=== PATIENT | male | born 1945 | race Caucasian/White ===

== ENCOUNTER 2019-08-05 09:14 | Inpatient (IN) | payer MEDICARE, MEDICAID ==
[~2019-08-05] VITALS: Ht 182.9 cm; Wt 122.0 kg
--- NOTE | 2019-08-05 09:35 | NUR ---
patient ambulated into room with cane refused wc: pt unsteady on feet with daughter in aw at his side
--- NOTE | 2019-08-05 09:36 | NUR ---
JULIA SAN [phone]
[2019-08-05] MEDS ORDERED: levetiracetam inj 500 MG in normal saline 100ml IV soln 95 ML IV ONE (09:50)
[2019-08-05] MEDS ORDERED: LORazepam 2 mg/ml vial IV ONE (09:50)
[2019-08-05] MEDS ORDERED: Levetiracetam-NS 500mg/100ml 100 ML IV ONE (09:55)
[2019-08-05 10:01] LABS: CLARITY,URINE CLEAR (Clear); COLOR,URINE YELLOW (Yellow); GLUCOSE, URINE NEGATIVE (Neg); KETONES,URINE NEGATIVE (Neg); LEUKOCYTE ESTERASE ,URINE NEGATIVE (Neg); NITRITES, URINE NEGATIVE (Neg); OCCULT BLOOD,URINE NEGATIVE (Neg); PH,URINE 5.5 (4.8-8.0); PROTEIN,URINE NEGATIVE (Neg); URINE AMPHETAMINE SCREEN NEGATIVE (Neg); URINE BARBITUATE SCREEN NEGATIVE (Neg); URINE BENZODIAZEPINES SCREEN NEGATIVE (Neg); URINE CANNABINOID SCREEN NEGATIVE (Neg); URINE COCAINE SCREEN NEGATIVE (Neg); URINE METHADONE SCREEN NEGATIVE (Neg); URINE OPIATE SCREEN NEGATIVE (Neg); URINE PHENCYCLIDINE SCREEN NEGATIVE (Neg); UROBILINOGEN,URINE 0.2 E.U/dL (0.2-1.0)
[2019-08-05 10:05] LABS: UA COLLECTION TYPE CLN CATCH MIDSTREAM
[2019-08-05 10:10] LABS: BASOPHILS # (AUTO) 0.1 X10'3 (0-0.2); BASOPHILS % (AUTO) 0.8 % (0-1); EOSINOPHILS # (AUTO) 0.3 X10'3 (0-0.9); HEMATOCRIT 45.8 % (42.0-52.0); HEMOGLOBIN 15.7 g/dl (14.0-17.9); LYMPHOCYTES % (AUTO) 23.2 % (21-51); MEAN CORPUSCULAR HEMOGLOBIN 30.6 PG (27.0-31.0); MEAN CORPUSCULAR HGB CONC 34.2 g/dL (33.0-36.5); MEAN CORPUSCULAR VOLUME 89.5 FL (78-98); MEAN PLATELET VOLUME 8.5 FL (7.4-10.4); MONOCYTES # (AUTO) 0.8 X10'3 (0-0.9); MONOCYTES % (AUTO) 8.8 % (2-12); NEUTROPHILS # (AUTO) 5.6 X10'3 (1.8-7.7); NEUTROPHILS % (AUTO) 64.2 % (42-75); PLATELET COUNT 246 X10'3 (140-440); RED BLOOD COUNT 5.12 X10'6 (4.70-6.10); RED CELL DISTRIBUTION WIDTH 13.6 % (11.5-14.5); WHITE BLOOD COUNT 8.7 X10'3 (4.5-11.0)
[2019-08-05 10:25] LABS: ALANINE AMINOTRANSFERASE 32 U/L (12-78); ALBUMIN 3.9 G/DL (3.4-5.0); ALKALINE PHOSPHATASE 101 IU/L (46-116); ANION GAP 4 (8-16); ASPARTATE AMINO TRANSFERASE 17 U/L (10-37); BILIRUBIN,TOTAL 0.4 MG/DL (0.1-1.0); BLOOD UREA NITROGEN 20 MG/DL (7-18); BUN/CREATININE RATIO 20.2 (5.4-32.0); CALCIUM 8.9 MG/DL (8.5-10.1); CARBAMAZEPINE (TEGRETOL) 8.5 UG/ML (4.0-12.0); CHLORIDE 101 MMOL/L (99-107); CREATININE 0.99 MG/DL (0.60-1.10); GLUCOSE 99 MG/DL (70-104); POTASSIUM 4.3 MMOL/L (3.5-5.1); SODIUM 136 MMOL/L (135-145); TOTAL PROTEIN 7.9 G/DL (6.4-8.2); eGFR 74 ML/MIN
--- NOTE | 2019-08-05 10:26 | NUR ---
CALLED PHARMACY TO OBTAIN KEPPRA AT 1000: ATTEMPTED TO OBTAIN FROM [employer] NOT IN [facility]
[2019-08-05 10:38] LABS: MAGNESIUM 1.7 MG/DL (1.5-2.4); PHOSPHORUS 2.8 MG/DL (2.3-4.5)
[2019-08-05 10:43] LABS: ETHANOL < 0.010 GM/DL (0.0-0.010)
[2019-08-05] MEDS ORDERED: IBUP-1985 PO (11:20)
[2019-08-05] MEDS ORDERED: KEP500T PO (11:20)
[2019-08-05] MEDS ORDERED: LISI-600 PO (11:20)
[2019-08-05] MEDS ORDERED: HYDR-4353 PO (11:20)
[2019-08-05] MEDS ORDERED: MONT10TA24 PO (11:20)
[2019-08-05] MEDS ORDERED: TERA1CAP4 PO (11:20)
[2019-08-05] MEDS ORDERED: ALBU18HF2 INH (11:20)
[2019-08-05] MEDS ORDERED: ASPI-1265 PO (11:20)
[2019-08-05] MEDS ORDERED: ARMO200T4 PO (11:20)
[2019-08-05] MEDS ORDERED: ESCI20TA38 PO (11:20)
[2019-08-05] MEDS ORDERED: CARB200T PO ×2 (11:22)
[2019-08-05] MEDS ORDERED: ATOR40TA PO (11:22)
--- NOTE | 2019-08-05 11:25 | NUR ---
DR JOHNSON COMPLETED EVALUATION FOR PT AND REPORTED TO NURSES STATION SHE WILL BEING PUTTING ORDERS IN SHORTLY, DR JOHNSON INFORMED RN JUST COMPLETED PT MED REC
[2019-08-05] MEDS ORDERED: mag hydrox/Alum hydrox/simeth 30ml oral suspension PO PRN (11:40)
[2019-08-05] MEDS ORDERED: potassium CL 10mEq/100ml bag 100 ML IV PRN ×2 (11:40)
[2019-08-05] MEDS ORDERED: potassium Cl 20 mEq SR tablet PO PRN ×2 (11:40)
[2019-08-05] MEDS ORDERED: acetaminophen 325mg tablet PO PRN ×2 (11:40)
[2019-08-05] MEDS ORDERED: morphine 2 MG/ML inj. syringe IV PRN ×2 (11:40)
[2019-08-05] MEDS ORDERED: magnesium Cl slow-release 64mg tablet PO PRN (11:40)
[2019-08-05] MEDS ORDERED: HYDROcodone/acetaminophen 5mg/325mg tablet PO PRN (11:40)
[2019-08-05] MEDS ORDERED: ondansetron/PF 4mg/2ml inj IV PRN (11:40)
[2019-08-05] MEDS ORDERED: magnesium 2GM in 50ml NS 50 ML IV PRN (11:40)
[2019-08-05] MEDS ORDERED: magnesium 4gm in 100ml NS 100 ML IV PRN (11:40)
[2019-08-05] MEDS ORDERED: albuterol 2.5 MG/3 ML nebule NEB PRN (12:15)
--- NOTE | 2019-08-05 12:25 | NUR ---
Received report from Jackelyn in ED
[2019-08-05] MEDS ORDERED: ibuprofen 200mg tablet PO PRN (12:30)
[2019-08-05 12:37] VITALS: BP 129/66
--- NOTE | 2019-08-05 13:03 | NUR ---
PAGER ID: [phone] MESSAGE: Re: [id number]. Ti Blanco. Do you want EEG now? He received Lucía and Gordon in ER. BOKEELIA [id number]
--- NOTE | 2019-08-05 15:23 | NUR ---
PAGER ID: [phone] MESSAGE: RE: [id number] Ti Blanco. Patient wanting to leave AMA. Upset EEG was done today and not 12 hours after seizure meds. Explained our protocol and need for medications. GRAEME [id number]
--- NOTE | 2019-08-05 16:29 | NUR ---
Spoke to Jenelle at [facility] [phone] who is nurse for Dr. Vora Neurologist. Per Jenelle, Dr. Vora agrees with current treatment patient with seizure medications. Dr. Pitts requested to speak to Dr. Vora directly but he has not called to speak to Dr. Pitts, instead had Jenelle call to give message. Will update Dr. Pitts
--- NOTE | 2019-08-05 17:03 | NUR ---
PAGER ID: [phone] MESSAGE: RE: [id number] Ti Blanco. Spoke to Jenelle at [facility], according to her Dr. Yousif agrees to continue seizure meds. He was unable to call you when I spoke to her. GRAEME [id number]
[2019-08-05 18:00] VITALS: BP 100/56
--- NOTE | 2019-08-05 18:09 | NUR ---
Problems reprioritized. Patient report given, questions answered & plan of care reviewed with Dodie CHAPMAN.
--- NOTE | 2019-08-05 18:10 | NUR ---
Received report from brandon CHAPMAN pt is awake and alert eating dinner in no apaprent distress
[2019-08-05 20:15] VITALS: BP_SYST 119; BP_SYST 144; BP_SYST 148; BP_DIAS 69; BP_DIAS 79; BP_DIAS 81
[2019-08-05] MEDS: docusate sod 100mg capsule PO SCH (20:20)
[2019-08-05] MEDS: levetiracetam 250mg tablet PO SCH (20:20)
[2019-08-05] MEDS: heparin, porcine 5000 units/ml vial SQ SCH (20:22)
--- NOTE | 2019-08-05 20:55 | NUR ---
pt was sitting on side of bed, would not respond to my question of what he was doing, got him to lay down, notice hand was kit, pt kept saying ow and not responding to question, called for another nurse to come look, pt then responded to name and started to respond to questions
[2019-08-05] MEDS ORDERED: montelukast 10mg tablet PO SCH (21:00)
[2019-08-05] MEDS ORDERED: carBAMazepine 100mg chewable tablet PO SCH (21:00)
[2019-08-05] MEDS ORDERED: Terazosin 1mg capsule PO SCH (21:00)
[2019-08-05] MEDS ORDERED: temazepam 15mg capsule PO PRN (21:00)
--- NOTE | 2019-08-05 21:43 | NUR ---
the non-responsive and contracture period seemed to last for about 1 minute.
[2019-08-05 22:00] VITALS: BP 119/69
[2019-08-06] MEDS: HYDROcodone/acetaminophen 10/325mg tab PO PRN ×2 (00:04→10:38)
[2019-08-06 06:00] VITALS: BP 141/65
[2019-08-06 06:11] LABS: BASOPHILS % (AUTO) 0.6 % (0-1); EOSINOPHILS # (AUTO) 0.3 X10'3 (0-0.9); HEMATOCRIT 39.5 % (42.0-52.0); HEMOGLOBIN 13.6 g/dl (14.0-17.9); LYMPHOCYTES # (AUTO) 1.6 X10'3 (1.1-4.8); LYMPHOCYTES % (AUTO) 27.1 % (21-51); MEAN CORPUSCULAR HEMOGLOBIN 30.7 PG (27.0-31.0); MEAN CORPUSCULAR HGB CONC 34.5 g/dL (33.0-36.5); MEAN CORPUSCULAR VOLUME 88.9 FL (78-98); MEAN PLATELET VOLUME 8.7 FL (7.4-10.4); MONOCYTES # (AUTO) 0.6 X10'3 (0-0.9); MONOCYTES % (AUTO) 10.7 % (2-12); NEUTROPHILS # (AUTO) 3.4 X10'3 (1.8-7.7); NEUTROPHILS % (AUTO) 56.6 % (42-75); PLATELET COUNT 208 X10'3 (140-440); RED BLOOD COUNT 4.44 X10'6 (4.70-6.10); RED CELL DISTRIBUTION WIDTH 13.6 % (11.5-14.5)
--- NOTE | 2019-08-06 06:18 | NUR ---
Gave report to Sejal CHAPMAN PT is in room talking with pt
--- NOTE | 2019-08-06 06:20 | NUR ---
Patient in room ORTHO 4022. I have received report from Lupe and had the opportunity to ask questions and assume patient care.
[2019-08-06 06:28] LABS: ALANINE AMINOTRANSFERASE 25 U/L (12-78); ALBUMIN 3.3 G/DL (3.4-5.0); ALKALINE PHOSPHATASE 85 IU/L (46-116); ANION GAP 5 (8-16); ASPARTATE AMINO TRANSFERASE 15 U/L (10-37); BILIRUBIN,TOTAL 0.3 MG/DL (0.1-1.0); BLOOD UREA NITROGEN 20 MG/DL (7-18); BUN/CREATININE RATIO 25.6 (5.4-32.0); CALCIUM 8.5 MG/DL (8.5-10.1); CHLORIDE 101 MMOL/L (99-107); CREATININE 0.78 MG/DL (0.60-1.10); GLUCOSE 110 MG/DL (70-104); MAGNESIUM 1.7 MG/DL (1.5-2.4); POTASSIUM 4.3 MMOL/L (3.5-5.1); SODIUM 133 MMOL/L (135-145); TOTAL CARBON DIOXIDE 27.2 MMOL/L (24-32); TOTAL PROTEIN 6.7 G/DL (6.4-8.2); eGFR > 90 ML/MIN
[2019-08-06] MEDS: levetiracetam 250mg tablet PO SCH (07:44)
[2019-08-06] MEDS: docusate sod 100mg capsule PO SCH (07:44)
[2019-08-06] MEDS: heparin, porcine 5000 units/ml vial SQ SCH (07:45)
[2019-08-06] MEDS ORDERED: atorvastatin 20mg tablet PO SCH (08:00)
[2019-08-06] MEDS ORDERED: ESCITALOPRAM OXALATE 5 MG TABLET PO SCH (08:00)
[2019-08-06] MEDS ORDERED: aspirin 81mg tab.chew PO SCH (08:00)
[2019-08-06] MEDS ORDERED: K and/or MAG REPLACEMENT MC SCH (08:00)
[2019-08-06] MEDS ORDERED: ARMODAFINIL 200 MG PO SCH (08:00)
[2019-08-06] MEDS ORDERED: lisinopril 20mg tablet PO SCH (08:00)
[2019-08-06] MEDS ORDERED: non-formulary drug (Carbamazepine (Tegretol) 1 TAB) PO SCH (08:00)
[2019-08-06 08:13] VITALS: BP_SYST 130; BP_SYST 134; BP_DIAS 63; BP_DIAS 65; BP_DIAS 68
--- NOTE | 2019-08-06 08:43 | NUR ---
Paged EEG to request report per request from , report has not been read yet.
[2019-08-06 10:00] VITALS: BP 111/50
--- NOTE | 2019-08-06 10:47 | NUR ---
Called daughter Giovana to advise MD would like to meet with her to discuss plan of care. Giovana advised she was waiting to here from neurologist but could be here in approx. 45 min.
--- NOTE | 2019-08-06 12:48 | NUR ---
PAGER ID: [phone] MESSAGE: Willie Pitts, Mr. Blanco's daughter in law, in room 4022A is here. Thank you, Sejal
--- NOTE | 2019-08-06 13:26 | NUR ---
Reviewed discharge instructions with pt. Pt verbalized understanding. All of pt's belongings were returned to pt. Pt is alert, oriented and does not have c/o discomfort/distress at this time. Wheeled pt downstairs to be driven home by his daughter in law.
== END 2019-08-06 13:40 | disposition home or self-care (01) | DRG 101 ==
LOC: ER 09:15 → ED HOLD 11:39 → ORTHO 4S 12:43
PROVIDERS: ADMIT Internal Medicine; ATTEND Internal Medicine
PROC: 4A10X4Z Monitoring of Central Nervous Electrical Activity, External Approach (ICD-10-PCS; principal; 2019-08-06)
DX: G40.909 Epilepsy, unspecified, not intractable, without status epilepticus (principal); I69.354 Hemiplegia and hemiparesis following cerebral infarction affecting left non-dominant side; I10 Essential (primary) hypertension; E78.5 Hyperlipidemia, unspecified; F15.90 Other stimulant use, unspecified, uncomplicated; M54.5 Low back pain; F32.9 Major depressive disorder, single episode, unspecified; G89.29 Other chronic pain; Z79.891 Long term (current) use of opiate analgesic; Z79.899 Other long term (current) drug therapy; Z87.891 Personal history of nicotine dependence; Z79.82 Long term (current) use of aspirin; Z88.8 Allergy status to other drugs, medicaments and biological substances
CPT/HCPCS: 36415; 80053; 80156; 80305; 80320; 81003; 83605; 83735; 84100; 85025; 87040; 87081; 92508; 92616; 95816; 96365; 96375; 97116; 97161; 97530; 99285; G0378; J1644; J1953; J2060

== ENCOUNTER 2019-08-24 08:53 | Outpatient (CLI) | payer MEDICARE, MEDICAID ==
[~2019-08-24 08:53] MED LIST: ALBU18HF2 INH; ARMO200T4 PO; ASPI-1265 PO; ATOR40TA PO; CARB200T PO; ESCI20TA38 PO; HYDR-4353 PO; IBUP-1985 PO; KEP500T PO; LISI-600 PO; MONT10TA24 PO; TERA1CAP4 PO
== END 2019-08-24 23:59 | disposition home or self-care (01) ==
LOC: RAD 08:53
PROVIDERS: ATTEND Psychiatry & Neurology Neurology
DX: G40.909 Epilepsy, unspecified, not intractable, without status epilepticus (principal); I10 Essential (primary) hypertension; J45.909 Unspecified asthma, uncomplicated; Z87.891 Personal history of nicotine dependence; Z86.69 Personal history of other diseases of the nervous system and sense organs
CPT/HCPCS: 95816

== ENCOUNTER 2020-08-18 09:04 | Emergency (ER) | payer MEDICARE, MEDICAID ==
[~2020-08-18] VITALS: Ht 182.9 cm; Wt 127.3 kg
[~2020-08-18 09:04] MED LIST changes: -ESCI20TA38 PO; +ESCI20TA45 PO; -MONT10TA24 PO; +MONT10TA26 PO
[2020-08-18] MEDS ORDERED: LORazepam 2 mg/ml vial IV ONE (09:15)
[2020-08-18] MEDS ORDERED: normal saline 1000ML IV soln IVB ONE (09:15)
[2020-08-18] MEDS ORDERED: LORazepam 2 mg/ml vial IM ONE (09:35)
[2020-08-18 09:56] LABS: CLARITY,URINE CLEAR (Clear); COLOR,URINE YELLOW (Yellow); GLUCOSE, URINE NEGATIVE (Neg); KETONES,URINE NEGATIVE (Neg); LEUKOCYTE ESTERASE ,URINE NEGATIVE (Neg); NITRITES, URINE NEGATIVE (Neg); OCCULT BLOOD,URINE NEGATIVE (Neg); PROTEIN,URINE NEGATIVE (Neg); UA COLLECTION TYPE VOIDED; UROBILINOGEN,URINE 0.2 E.U/dL (0.2-1.0)
[2020-08-18 10:17] LABS: BASOPHILS % (AUTO) 0.5 % (0-1); EOSINOPHILS # (AUTO) 0.2 X10'3 (0-0.9); EOSINOPHILS % (AUTO) 2.3 % (0-6); HEMOGLOBIN 14.2 g/dl (14.0-17.9); LYMPHOCYTES # (AUTO) 1.3 X10'3 (1.1-4.8); LYMPHOCYTES % (AUTO) 15.4 % (21-51); MEAN CORPUSCULAR HEMOGLOBIN 30.1 PG (27.0-31.0); MEAN CORPUSCULAR HGB CONC 33.8 g/dL (33.0-36.5); MEAN CORPUSCULAR VOLUME 88.9 FL (78-98); MEAN PLATELET VOLUME 8.8 FL (7.4-10.4); MONOCYTES # (AUTO) 0.7 X10'3 (0-0.9); MONOCYTES % (AUTO) 8.3 % (2-12); NEUTROPHILS # (AUTO) 6.3 X10'3 (1.8-7.7); NEUTROPHILS % (AUTO) 73.5 % (42-75); PLATELET COUNT 242 X10'3 (140-440); RED BLOOD COUNT 4.72 X10'6 (4.70-6.10); RED CELL DISTRIBUTION WIDTH 13.5 % (11.5-14.5); WHITE BLOOD COUNT 8.6 X10'3 (4.5-11.0)
[2020-08-18 10:37] LABS: ALANINE AMINOTRANSFERASE 36 U/L (12-78); ALBUMIN 3.8 G/DL (3.4-5.0); ALBUMIN/GLOBULIN RATIO 1.1 (1.1-1.5); ALKALINE PHOSPHATASE 98 IU/L (46-116); ANION GAP 9 (8-16); ASPARTATE AMINO TRANSFERASE 20 U/L (10-37); BILIRUBIN,TOTAL 0.4 MG/DL (0.1-1.0); BLOOD UREA NITROGEN 12 MG/DL (7-18); BUN/CREATININE RATIO 14.6 (5.4-32.0); CALCIUM 9.1 MG/DL (8.5-10.1); CHLORIDE 104 MMOL/L (99-107); CREATININE 0.82 MG/DL (0.60-1.10); GLUCOSE 95 MG/DL (70-104); POTASSIUM 4.1 MMOL/L (3.5-5.1); SODIUM 140 MMOL/L (135-145); TOTAL CARBON DIOXIDE 27.1 MMOL/L (24-32); TOTAL PROTEIN 7.2 G/DL (6.4-8.2); eGFR > 90 ML/MIN
[2020-08-18] MEDS ORDERED: LEVE750T6 PO (10:43)
[2020-08-18 11:38] VITALS: BP 178/95
== END 2020-08-18 11:42 | disposition home or self-care (01) ==
LOC: ER 09:04
DX: G40.109 Localization-related (focal) (partial) symptomatic epilepsy and epileptic syndromes with simple partial seizures, not intractable, without status epilepticus (principal); R51.9 Headache, unspecified; Z86.73 Personal history of transient ischemic attack (TIA), and cerebral infarction without residual deficits; Z86.69 Personal history of other diseases of the nervous system and sense organs; Z88.1 Allergy status to other antibiotic agents; Z79.82 Long term (current) use of aspirin; Z79.899 Other long term (current) drug therapy
CPT/HCPCS: 36415; 70450; 80053; 80177; 81003; 85025; 96361; 96372; 96374; 99285; J2060; J7030; 99284

== ENCOUNTER 2022-12-12 10:53 | Emergency (ER) | payer MEDICARE, MEDICAID ==
[~2022-12-12] VITALS: Ht 182.9 cm; Wt 127.3 kg
[~2022-12-12 10:53] MED LIST changes: -ALBU18HF2 INH; +ALBU18HF2 PO; -ARMO200T4 PO; +ESCI20TA39 PO; -ESCI20TA45 PO; +LACO50TA2 PO; -LISI-600 PO; +LISI20TA28 PO; +MONT-40 PO; -MONT10TA26 PO; +PREG75CA75 PO
[2022-12-12 11:40] LABS: BASOPHILS # (AUTO) 0.1 X10'3 (0-0.2); BASOPHILS % (AUTO) 0.6 % (0-1); EOSINOPHILS # (AUTO) 0.3 X10'3 (0-0.9); HEMATOCRIT 47.7 % (42.0-52.0); HEMOGLOBIN 15.8 g/dl (14.0-17.9); LYMPHOCYTES # (AUTO) 1.9 X10'3 (1.1-4.8); LYMPHOCYTES % (AUTO) 17.7 % (21-51); MEAN CORPUSCULAR HEMOGLOBIN 29.8 PG (27.0-31.0); MEAN CORPUSCULAR HGB CONC 33.2 g/dL (33.0-36.5); MEAN PLATELET VOLUME 8.7 FL (7.4-10.4); MONOCYTES # (AUTO) 0.9 X10'3 (0-0.9); MONOCYTES % (AUTO) 8.5 % (2-12); NEUTROPHILS # (AUTO) 7.5 X10'3 (1.8-7.7); NEUTROPHILS % (AUTO) 70.2 % (42-75); PLATELET COUNT 271 X10'3 (140-440); RED CELL DISTRIBUTION WIDTH 14.2 % (11.5-14.5); WHITE BLOOD COUNT 10.7 X10'3 (4.5-11.0)
[2022-12-12 11:56] LABS: ALANINE AMINOTRANSFERASE 27 U/L (12-78); ALBUMIN 3.5 G/DL (3.4-5.0); ALKALINE PHOSPHATASE 90 IU/L (46-116); ANION GAP 7 (8-16); BILIRUBIN,TOTAL 0.4 MG/DL (0.1-1.0); BLOOD UREA NITROGEN 13 MG/DL (7-18); BUN/CREATININE RATIO 17.3 (5.4-32.0); CALCIUM 9.1 MG/DL (8.5-10.1); CHLORIDE 104 MMOL/L (99-107); CREATININE 0.75 MG/DL (0.60-1.10); GLUCOSE 108 MG/DL (70-104); SODIUM 137 MMOL/L (135-145); TOTAL CARBON DIOXIDE 25.7 MMOL/L (24-32); TOTAL PROTEIN 7.1 G/DL (6.4-8.2); eGFR > 90 ML/MIN
[2022-12-12] MEDS ORDERED: magnesium 2GM in 50ml NS 50 ML IV ONE (12:00)
[2022-12-12] MEDS ORDERED: normal saline 1000ML IV soln IVB ONE (12:00)
[2022-12-12] MEDS ORDERED: LORazepam 2 mg/ml vial IV ONE (12:00)
[2022-12-12 12:05] LABS: ASPARTATE AMINO TRANSFERASE 26 U/L (10-37); POTASSIUM 4.5 MMOL/L (3.5-5.1)
[2022-12-12] MEDS ORDERED: levetiracetam inj 1,000 MG in normal saline 100ml IV soln 100 ML IV STA (12:56)
[2022-12-12 13:07] LABS: CREATINE KINASE 167 U/L (39-308)
--- NOTE | 2022-12-12 13:11 | NUR ---
pt sleeping at this time .vss wnl.started the keppra infusing per md orders.
[2022-12-12 15:24] VITALS: BP 126/69
--- NOTE | 2022-12-12 15:46 | NUR ---
PT PASSED GAIT TEST. NO SOB/NO COMPLAINTS OF CP.
== END 2022-12-12 15:49 | disposition home or self-care (01) ==
LOC: ER 10:53
DX: R56.9 Unspecified convulsions (principal); B02.9 Zoster without complications; I50.9 Heart failure, unspecified; Z88.1 Allergy status to other antibiotic agents; Z79.899 Other long term (current) drug therapy; Z79.82 Long term (current) use of aspirin; Z79.1 Long term (current) use of non-steroidal anti-inflammatories (NSAID); Z79.2 Long term (current) use of antibiotics
CPT/HCPCS: 36415; 71045; 80053; 82550; 83880; 84484; 85025; 96365; 96366; 96368; 96375; 99285; J1953; J2060; J3475; J3490; J7030

== ENCOUNTER 2023-08-16 16:25 | Inpatient (IN) | payer MEDICARE, MEDICAID ==
[~2023-08-16] VITALS: Ht 185.4 cm; Wt 123.2 kg
[~2023-08-16 16:25] MED LIST changes: -PREG75CA75 PO; +PREG75CA76 PO
[2023-08-16] MEDS ORDERED: LORazepam 2 mg/ml vial IV ONE (17:05)
[2023-08-16] MEDS ORDERED: levetiracetam inj 500 MG in normal saline 100ml IV soln 95 ML IV ONE (17:45)
[2023-08-16] MEDS ORDERED: levetiracetam inj 500 MG in normal saline 100ml IV soln 100 ML IV ONE (17:45)
[2023-08-16 17:58] LABS: BASOPHILS # (AUTO) 0.1 X10'3 (0-0.2); BASOPHILS % (AUTO) 0.7 % (0-1); EOSINOPHILS # (AUTO) 0.4 X10'3 (0-0.9); EOSINOPHILS % (AUTO) 4.9 % (0-6); HEMATOCRIT 49.4 % (42.0-52.0); HEMOGLOBIN 16.5 g/dl (14.0-17.9); LYMPHOCYTES # (AUTO) 1.8 X10'3 (1.1-4.8); LYMPHOCYTES % (AUTO) 19.6 % (21-51); MEAN CORPUSCULAR HEMOGLOBIN 30.3 PG (27.0-31.0); MEAN CORPUSCULAR HGB CONC 33.3 g/dL (33.0-36.5); MEAN CORPUSCULAR VOLUME 91.1 FL (78-98); MONOCYTES # (AUTO) 0.8 X10'3 (0-0.9); MONOCYTES % (AUTO) 8.5 % (2-12); NEUTROPHILS % (AUTO) 66.3 % (42-75); PLATELET COUNT 214 X10'3 (140-440); RED BLOOD COUNT 5.43 X10'6 (4.70-6.10); RED CELL DISTRIBUTION WIDTH 14.6 % (11.5-14.5); WHITE BLOOD COUNT 9.1 X10'3 (4.5-11.0)
[2023-08-16] MEDS ORDERED: ondansetron/PF 4mg/2ml inj IV PRN (18:25)
[2023-08-16] MEDS ORDERED: potassium Cl 20 mEq SR tablet PO PRN ×2 (18:25)
[2023-08-16] MEDS ORDERED: bisacodyl 10mg suppository rectal RC PRN (18:25)
[2023-08-16] MEDS ORDERED: magnesium 2GM in 50ml NS 50 ML IV PRN (18:25)
[2023-08-16] MEDS ORDERED: potassium Cl 40MEQ/1/2NS 520ml 520 ML IV PRN (18:25)
[2023-08-16] MEDS ORDERED: acetaminophen 325mg tablet PO PRN (18:25)
[2023-08-16] MEDS ORDERED: mag hydrox/Alum hydrox/simeth 30ml oral suspension PO PRN (18:25)
[2023-08-16] MEDS ORDERED: magnesium 4gm in 100ml NS 100 ML IV PRN (18:25)
[2023-08-16 18:41] LABS: ALANINE AMINOTRANSFERASE 32 U/L (12-78); ALBUMIN 3.4 G/DL (3.4-5.0); ALKALINE PHOSPHATASE 86 IU/L (46-116); ANION GAP 6 (8-16); ASPARTATE AMINO TRANSFERASE 26 U/L (10-37); BILIRUBIN,TOTAL 0.2 MG/DL (0.1-1.0); BLOOD UREA NITROGEN 16 MG/DL (7-18); BUN/CREATININE RATIO 17.4 (10.0-20.0); CALCIUM 8.9 MG/DL (8.5-10.1); CARBAMAZEPINE (TEGRETOL) 3.5 UG/ML (4.0-12.0); CHLORIDE 104 MMOL/L (99-107); CREATININE 0.92 MG/DL (0.60-1.10); GLUCOSE 116 MG/DL (70-104); POTASSIUM 4.3 MMOL/L (3.5-5.1); SODIUM 139 MMOL/L (135-145); TOTAL PROTEIN 6.8 G/DL (6.4-8.2); eCRCL 71 ML/MIN; eGFR 79 ML/MIN
[2023-08-16] MEDS: K and/or MAG REPLACEMENT MC SCH (20:00)
[2023-08-16] MEDS ORDERED: LACOSAMIDE 50 MG TABLET PO SCH (20:00)
[2023-08-16] MEDS: docusate sod 100mg capsule PO SCH (21:26)
[2023-08-16] MEDS: HYDROcodone/acetaminophen 10/325mg tab PO PRN (21:27)
[2023-08-16] MEDS: levetiracetam 250mg tablet PO SCH (21:27)
[2023-08-16] MEDS: LORazepam 2 mg/ml vial IV ONE ×2 (21:27→21:48)
[2023-08-16] MEDS: enoxaparin 40mg/0.4ml syringe SQ SCH (21:28)
[2023-08-16] MEDS: carBAMazepine Ext. Release 200 MG TAB.ER.12H PO SCH (21:50)
[2023-08-16 22:26] VITALS: BP 152/96; PULSE 71; RESP 17; TEMP 97.7; O2SAT 95
[2023-08-16 22:58] VITALS: RESP 17; O2SAT 95
[2023-08-17] VITALS (7 sets, daily range): BP systolic 132–148; BP diastolic 66–85; PULSE 66–81; RESP 14–20; TEMP 97.7–98.5; O2SAT 93–97
[2023-08-17] MEDS: HYDROcodone/acetaminophen 10/325mg tab PO PRN ×3 (02:20→15:56)
[2023-08-17] MEDS: LORazepam 2 mg/ml vial IV PRN ×3 (02:38→20:33)
[2023-08-17 05:53] LABS: BASOPHILS # (AUTO) 0.1 X10'3 (0-0.2); BASOPHILS % (AUTO) 0.5 % (0-1); EOSINOPHILS # (AUTO) 0.4 X10'3 (0-0.9); EOSINOPHILS % (AUTO) 3.8 % (0-6); HEMOGLOBIN 15.7 g/dl (14.0-17.9); LYMPHOCYTES # (AUTO) 2.8 X10'3 (1.1-4.8); LYMPHOCYTES % (AUTO) 25.5 % (21-51); MEAN CORPUSCULAR HEMOGLOBIN 30.3 PG (27.0-31.0); MEAN CORPUSCULAR HGB CONC 33.4 g/dL (33.0-36.5); MEAN CORPUSCULAR VOLUME 90.6 FL (78-98); MEAN PLATELET VOLUME 9.6 FL (7.4-10.4); MONOCYTES # (AUTO) 0.7 X10'3 (0-0.9); MONOCYTES % (AUTO) 6.8 % (2-12); NEUTROPHILS % (AUTO) 63.4 % (42-75); PLATELET COUNT 222 X10'3 (140-440); RED BLOOD COUNT 5.19 X10'6 (4.70-6.10); RED CELL DISTRIBUTION WIDTH 14.5 % (11.5-14.5)
[2023-08-17 05:55] LABS: ALANINE AMINOTRANSFERASE 30 U/L (12-78); ALBUMIN 3.3 G/DL (3.4-5.0); ALKALINE PHOSPHATASE 88 IU/L (46-116); ANION GAP 5 (8-16); ASPARTATE AMINO TRANSFERASE 18 U/L (10-37); BILIRUBIN,TOTAL 0.5 MG/DL (0.1-1.0); BLOOD UREA NITROGEN 13 MG/DL (7-18); BUN/CREATININE RATIO 14.4 (10.0-20.0); CALCIUM 8.5 MG/DL (8.5-10.1); CHLORIDE 100 MMOL/L (99-107); GLUCOSE 105 MG/DL (70-104); MAGNESIUM 1.8 MG/DL (1.5-2.4); POTASSIUM 3.6 MMOL/L (3.5-5.1); SODIUM 136 MMOL/L (135-145); TOTAL CARBON DIOXIDE 30.7 MMOL/L (24-32); TOTAL PROTEIN 6.6 G/DL (6.4-8.2); eCRCL 75 ML/MIN; eGFR 81 ML/MIN
[2023-08-17] MEDS: levetiracetam 250mg tablet PO SCH ×2 (07:40→19:59)
[2023-08-17] MEDS: docusate sod 100mg capsule PO SCH ×2 (07:40→19:58)
[2023-08-17] MEDS: LACOSAMIDE 50 MG TABLET PO SCH ×3 (08:21→20:40)
[2023-08-17] MEDS: K and/or MAG REPLACEMENT MC SCH ×2 (08:23→19:45)
[2023-08-17] MEDS ORDERED: LORazepam 2 mg/ml vial IV PRN (11:45)
[2023-08-17] MEDS ORDERED: albuterol 2.5 MG/3 ML nebule NEB PRN (15:55)
[2023-08-17] MEDS ORDERED: ibuprofen 200mg tablet PO PRN (15:55)
[2023-08-17] MEDS: enoxaparin 40mg/0.4ml syringe SQ SCH (19:58)
[2023-08-17] MEDS: carBAMazepine Ext. Release 200 MG TAB.ER.12H PO SCH (20:00)
[2023-08-17] MEDS: pregabalin 75mg capsule PO SCH (22:12)
[2023-08-17] MEDS: Terazosin 1mg capsule PO SCH (22:12)
[2023-08-17] MEDS: montelukast 10mg tablet PO SCH (22:12)
[2023-08-17] MEDS: atorvastatin 20mg tablet PO SCH (22:13)
[2023-08-18] MEDS: HYDROcodone/acetaminophen 10/325mg tab PO PRN ×3 (00:41→20:05)
[2023-08-18 02:46] LABS: URINE AMPHETAMINE SCREEN NEGATIVE (Neg); URINE BARBITUATE SCREEN NEGATIVE (Neg); URINE BENZODIAZEPINES SCREEN NEGATIVE (Neg); URINE CANNABINOID SCREEN NEGATIVE (Neg); URINE COCAINE SCREEN NEGATIVE (Neg); URINE METHADONE SCREEN NEGATIVE (Neg); URINE OPIATE SCREEN POSITIVE (Neg); URINE PHENCYCLIDINE SCREEN NEGATIVE (Neg)
[2023-08-18 02:50] LABS: BILIRUBIN,URINE NEGATIVE (Neg); CLARITY,URINE CLEAR (Clear); COLOR,URINE YELLOW (Yellow); GLUCOSE, URINE NEGATIVE (Neg); KETONES,URINE NEGATIVE (Neg); LEUKOCYTE ESTERASE ,URINE NEGATIVE (Neg); NITRITES, URINE NEGATIVE (Neg); OCCULT BLOOD,URINE MODERATE (Neg); PH,URINE 6.5 (4.8-8.0); PROTEIN,URINE NEGATIVE (Neg); UROBILINOGEN,URINE 0.2 E.U/dL (0.2-1.0)
[2023-08-18 02:53] LABS: UA COLLECTION TYPE STRAIGHT CATH
[2023-08-18 03:02] LABS: BACTERIA,URINE NONE SEEN /HPF (Neg); MUCUS STRANDS NONE SEEN /LPF (Neg); RBC,URINE 20-50 /HPF (0-2); SQUAMOUS EPITHELIAL CELL,UR NONE SEEN /LPF (FEW); WBC,URINE 0-4 /HPF (0-4)
[2023-08-18 06:00] VITALS: BP 135/78; PULSE 84; RESP 20; TEMP 96.6; O2SAT 92
[2023-08-18 06:05] LABS: BASOPHILS % (AUTO) 0.4 % (0-1); EOSINOPHILS # (AUTO) 0.4 X10'3 (0-0.9); EOSINOPHILS % (AUTO) 4.5 % (0-6); HEMATOCRIT 48.4 % (42.0-52.0); HEMOGLOBIN 16.3 g/dl (14.0-17.9); LYMPHOCYTES # (AUTO) 1.8 X10'3 (1.1-4.8); LYMPHOCYTES % (AUTO) 21.1 % (21-51); MEAN CORPUSCULAR HEMOGLOBIN 30.6 PG (27.0-31.0); MEAN CORPUSCULAR HGB CONC 33.6 g/dL (33.0-36.5); MEAN CORPUSCULAR VOLUME 90.9 FL (78-98); MEAN PLATELET VOLUME 9.5 FL (7.4-10.4); MONOCYTES # (AUTO) 0.7 X10'3 (0-0.9); MONOCYTES % (AUTO) 8.5 % (2-12); NEUTROPHILS # (AUTO) 5.7 X10'3 (1.8-7.7); NEUTROPHILS % (AUTO) 65.5 % (42-75); PLATELET COUNT 204 X10'3 (140-440); RED BLOOD COUNT 5.32 X10'6 (4.70-6.10); RED CELL DISTRIBUTION WIDTH 14.1 % (11.5-14.5); WHITE BLOOD COUNT 8.6 X10'3 (4.5-11.0)
[2023-08-18 06:26] LABS: ALANINE AMINOTRANSFERASE 26 U/L (12-78); ALBUMIN 3.4 G/DL (3.4-5.0); ALKALINE PHOSPHATASE 83 IU/L (46-116); ANION GAP 8 (8-16); ASPARTATE AMINO TRANSFERASE 19 U/L (10-37); BILIRUBIN,TOTAL 0.4 MG/DL (0.1-1.0); BLOOD UREA NITROGEN 12 MG/DL (7-18); BUN/CREATININE RATIO 14.5 (10.0-20.0); CALCIUM 9.1 MG/DL (8.5-10.1); CHLORIDE 103 MMOL/L (99-107); CREATININE 0.83 MG/DL (0.60-1.10); GLUCOSE 92 MG/DL (70-104); SODIUM 139 MMOL/L (135-145); TOTAL CARBON DIOXIDE 28.5 MMOL/L (24-32); TOTAL PROTEIN 6.7 G/DL (6.4-8.2); eCRCL 82 ML/MIN; eGFR 89 ML/MIN
[2023-08-18 08:00] VITALS: RESP 14
[2023-08-18] MEDS: K and/or MAG REPLACEMENT MC SCH ×2 (08:00→20:00)
[2023-08-18] MEDS: levetiracetam 250mg tablet PO SCH ×2 (08:33→19:58)
[2023-08-18] MEDS: pregabalin 75mg capsule PO SCH ×3 (08:34→20:41)
[2023-08-18] MEDS: LORazepam 2 mg/ml vial IV PRN (09:57)
[2023-08-18 10:00] VITALS: BP 142/86; PULSE 93; RESP 18; TEMP 98.5; O2SAT 95
[2023-08-18] MEDS: docusate sod 100mg capsule PO SCH ×2 (11:10→19:58)
[2023-08-18] MEDS: ESCITALOPRAM 10 mg tablet 10 MG TABLET PO SCH (11:11)
[2023-08-18] MEDS: lisinopril 20mg tablet PO SCH (11:13)
[2023-08-18] MEDS: aspirin 81mg tab.chew PO SCH (11:13)
[2023-08-18] MEDS: LACOSAMIDE 50 MG TABLET PO SCH ×2 (11:14→19:59)
[2023-08-18] MEDS ORDERED: LACOSAMIDE 50 MG TABLET PO ONE (12:05)
[2023-08-18 18:30] VITALS: BP 106/61; PULSE 53; RESP 15; TEMP 98.8; O2SAT 98
[2023-08-18 19:00] VITALS: RESP 14; O2SAT 93
[2023-08-18] MEDS: enoxaparin 40mg/0.4ml syringe SQ SCH (19:59)
[2023-08-18] MEDS: Terazosin 1mg capsule PO SCH (20:41)
[2023-08-18] MEDS: montelukast 10mg tablet PO SCH (20:41)
[2023-08-18] MEDS: carBAMazepine Ext. Release 200 MG TAB.ER.12H PO SCH (20:41)
[2023-08-18] MEDS: atorvastatin 20mg tablet PO SCH (20:41)
[2023-08-18 21:08] VITALS: BP 160/81; PULSE 80; RESP 14; TEMP 97.8; O2SAT 93
[2023-08-18] MEDS: oxyCODONE IR 5mg (immed. release) tablet PO PRN (23:51)
[2023-08-19] MEDS: LORazepam 2 mg/ml vial IV PRN (01:35)
[2023-08-19 06:00] VITALS: BP 117/68; PULSE 84; RESP 16; TEMP 98.2; O2SAT 93
[2023-08-19 07:20] LABS: BASOPHILS # (AUTO) 0.1 X10'3 (0-0.2); BASOPHILS % (AUTO) 0.5 % (0-1); EOSINOPHILS # (AUTO) 0.2 X10'3 (0-0.9); EOSINOPHILS % (AUTO) 1.4 % (0-6); HEMATOCRIT 47.9 % (42.0-52.0); HEMOGLOBIN 15.8 g/dl (14.0-17.9); LYMPHOCYTES # (AUTO) 1.5 X10'3 (1.1-4.8); LYMPHOCYTES % (AUTO) 12.5 % (21-51); MEAN CORPUSCULAR HEMOGLOBIN 29.9 PG (27.0-31.0); MEAN CORPUSCULAR VOLUME 90.5 FL (78-98); MEAN PLATELET VOLUME 9.1 FL (7.4-10.4); MONOCYTES # (AUTO) 0.8 X10'3 (0-0.9); NEUTROPHILS # (AUTO) 9.5 X10'3 (1.8-7.7); NEUTROPHILS % (AUTO) 78.6 % (42-75); PLATELET COUNT 218 X10'3 (140-440); RED CELL DISTRIBUTION WIDTH 14.3 % (11.5-14.5)
[2023-08-19 07:39] LABS: ALANINE AMINOTRANSFERASE 26 U/L (12-78); ALBUMIN 3.4 G/DL (3.4-5.0); ALKALINE PHOSPHATASE 88 IU/L (46-116); ANION GAP 5 (8-16); ASPARTATE AMINO TRANSFERASE 20 U/L (10-37); BILIRUBIN,TOTAL 0.4 MG/DL (0.1-1.0); BLOOD UREA NITROGEN 15 MG/DL (7-18); BUN/CREATININE RATIO 16.5 (10.0-20.0); CALCIUM 8.9 MG/DL (8.5-10.1); CHLORIDE 100 MMOL/L (99-107); CREATININE 0.91 MG/DL (0.60-1.10); GLUCOSE 105 MG/DL (70-104); MAGNESIUM 1.9 MG/DL (1.5-2.4); POTASSIUM 4.3 MMOL/L (3.5-5.1); SODIUM 133 MMOL/L (135-145); TOTAL CARBON DIOXIDE 28.2 MMOL/L (24-32); TOTAL PROTEIN 6.8 G/DL (6.4-8.2); eCRCL 74 ML/MIN; eGFR 80 ML/MIN
[2023-08-19] MEDS: K and/or MAG REPLACEMENT MC SCH ×2 (08:00→20:00)
[2023-08-19] MEDS: aspirin 81mg tab.chew PO SCH (09:34)
[2023-08-19] MEDS: levetiracetam 250mg tablet PO SCH ×2 (09:34→21:15)
[2023-08-19] MEDS: docusate sod 100mg capsule PO SCH ×2 (09:34→21:16)
[2023-08-19] MEDS: pregabalin 75mg capsule PO SCH ×3 (09:35→21:15)
[2023-08-19] MEDS: ESCITALOPRAM 10 mg tablet 10 MG TABLET PO SCH (09:35)
[2023-08-19] MEDS: LACOSAMIDE 50 MG TABLET PO SCH ×2 (09:36→21:15)
[2023-08-19] MEDS: lisinopril 20mg tablet PO SCH (09:38)
[2023-08-19] MEDS: enoxaparin 40mg/0.4ml syringe SQ SCH (09:39)
[2023-08-19 10:00] VITALS: BP 112/61; PULSE 92; RESP 18; TEMP 97.7; O2SAT 93
[2023-08-19] MEDS: oxyCODONE IR 5mg (immed. release) tablet PO PRN (11:30)
[2023-08-19 18:00] VITALS: BP 123/64; PULSE 91; RESP 14; TEMP 98.4; O2SAT 93
[2023-08-19 20:50] VITALS: RESP 14; O2SAT 93
[2023-08-19] MEDS: Terazosin 1mg capsule PO SCH (21:15)
[2023-08-19] MEDS: atorvastatin 20mg tablet PO SCH (21:16)
[2023-08-19] MEDS: montelukast 10mg tablet PO SCH (21:16)
[2023-08-19] MEDS: carBAMazepine Ext. Release 200 MG TAB.ER.12H PO SCH (21:18)
[2023-08-19 22:00] VITALS: BP 136/67; PULSE 77; RESP 16; TEMP 98.6; O2SAT 96
[2023-08-20] MEDS: oxyCODONE IR 5mg (immed. release) tablet PO PRN ×2 (01:21→08:08)
[2023-08-20 06:00] VITALS: BP 141/72; PULSE 76; RESP 17; TEMP 97.6; O2SAT 95
[2023-08-20 07:21] LABS: BASOPHILS # (AUTO) 0.1 X10'3 (0-0.2); EOSINOPHILS # (AUTO) 0.4 X10'3 (0-0.9); EOSINOPHILS % (AUTO) 3.6 % (0-6); HEMATOCRIT 46.6 % (42.0-52.0); HEMOGLOBIN 15.5 g/dl (14.0-17.9); LYMPHOCYTES # (AUTO) 2.2 X10'3 (1.1-4.8); LYMPHOCYTES % (AUTO) 22.2 % (21-51); MEAN CORPUSCULAR HGB CONC 33.2 g/dL (33.0-36.5); MEAN CORPUSCULAR VOLUME 90.4 FL (78-98); MEAN PLATELET VOLUME 9.1 FL (7.4-10.4); MONOCYTES # (AUTO) 0.9 X10'3 (0-0.9); NEUTROPHILS # (AUTO) 6.3 X10'3 (1.8-7.7); NEUTROPHILS % (AUTO) 64.2 % (42-75); PLATELET COUNT 207 X10'3 (140-440); RED BLOOD COUNT 5.16 X10'6 (4.70-6.10); RED CELL DISTRIBUTION WIDTH 14.4 % (11.5-14.5); WHITE BLOOD COUNT 9.8 X10'3 (4.5-11.0)
[2023-08-20 07:37] LABS: ALANINE AMINOTRANSFERASE 26 U/L (12-78); ALBUMIN 3.3 G/DL (3.4-5.0); ALBUMIN/GLOBULIN RATIO 0.9 (1.1-1.5); ALKALINE PHOSPHATASE 84 IU/L (46-116); ANION GAP 5 (8-16); ASPARTATE AMINO TRANSFERASE 16 U/L (10-37); BILIRUBIN,TOTAL 0.5 MG/DL (0.1-1.0); BLOOD UREA NITROGEN 16 MG/DL (7-18); CHLORIDE 100 MMOL/L (99-107); CREATININE 0.89 MG/DL (0.60-1.10); GLUCOSE 97 MG/DL (70-104); MAGNESIUM 1.8 MG/DL (1.5-2.4); POTASSIUM 4.3 MMOL/L (3.5-5.1); SODIUM 133 MMOL/L (135-145); TOTAL CARBON DIOXIDE 28.2 MMOL/L (24-32); TOTAL PROTEIN 6.8 G/DL (6.4-8.2); eCRCL 76 ML/MIN; eGFR 82 ML/MIN
[2023-08-20] MEDS: pregabalin 75mg capsule PO SCH (07:58)
[2023-08-20] MEDS: aspirin 81mg tab.chew PO SCH (07:58)
[2023-08-20] MEDS: docusate sod 100mg capsule PO SCH (07:59)
[2023-08-20] MEDS: LACOSAMIDE 50 MG TABLET PO SCH (07:59)
[2023-08-20] MEDS: ESCITALOPRAM 10 mg tablet 10 MG TABLET PO SCH (07:59)
[2023-08-20] MEDS: levetiracetam 250mg tablet PO SCH (07:59)
[2023-08-20] MEDS: lisinopril 20mg tablet PO SCH (08:00)
[2023-08-20] MEDS: K and/or MAG REPLACEMENT MC SCH (08:00)
[2023-08-20] MEDS ORDERED: CARB-101 PO (08:46)
[2023-08-20] MEDS ORDERED: LACO50TA2 PO (08:46)
[2023-08-20 10:00] VITALS: BP 106/55; PULSE 89; RESP 13; TEMP 98.5; O2SAT 93
[2023-08-20 10:50] VITALS: RESP 18
== END 2023-08-20 12:20 | disposition home health service (06) | DRG 101 ==
LOC: ER 16:25 → ED HOLD 18:29 → EDBEDREQ 21:37 → ORTHO 4S 22:26
PROVIDERS: ADMIT Family Medicine; ATTEND Family Medicine
PROC: 4A00X4Z Measurement of Central Nervous Electrical Activity, External Approach (ICD-10-PCS; principal; 2023-08-19)
DX: G40.901 Epilepsy, unspecified, not intractable, with status epilepticus (principal); I10 Essential (primary) hypertension; Z66 Do not resuscitate; E78.5 Hyperlipidemia, unspecified; F32.9 Major depressive disorder, single episode, unspecified; Z86.73 Personal history of transient ischemic attack (TIA), and cerebral infarction without residual deficits; Z88.8 Allergy status to other drugs, medicaments and biological substances; Z87.891 Personal history of nicotine dependence; Z98.1 Arthrodesis status; Z79.899 Other long term (current) drug therapy; Z79.82 Long term (current) use of aspirin; Z91.148 Patient's other noncompliance with medication regimen for other reason; Z82.49 Family history of ischemic heart disease and other diseases of the circulatory system
CPT/HCPCS: 36415; 70450; 72125; 72128; 72131; 80053; 80156; 80177; 80305; 81001; 83735; 84425; 85025; 87081; 95720; 96374; 97161; 97530; 99285; A6250; C1758; G0378; J1650; J1953; J2060; J3490

== ENCOUNTER 2024-06-22 08:33 | Outpatient (CLI) | payer MEDICARE, MEDICAID ==
[~2024-06-22 08:33] MED LIST changes: -ASPI-1265 PO; +CARB-322 PO; -CARB200T PO; -MONT-40 PO
== END 2024-06-22 23:59 | disposition home or self-care (01) ==
LOC: CARD DIAG 08:33
PROVIDERS: ATTEND Family Medicine
DX: I34.81 Nonrheumatic mitral (valve) annulus calcification (principal); I10 Essential (primary) hypertension; G40.89 Other seizures
CPT/HCPCS: 93306

== ENCOUNTER 2024-07-26 07:50 | Outpatient (CLI) | payer MEDICARE, MEDICAID ==
[~2024-07-26] VITALS: Ht 185.4 cm; Wt 125.0 kg
[2024-07-26] MEDS ORDERED: aminophylline inj. 0 ML IV ONE (08:58)
[2024-07-26] MEDS: regadenoson 0.4mg/5ml syringe IV ONE (09:00)
[2024-07-26 09:01] VITALS: BP 157/83; PULSE 60; RESP 18; O2SAT 98
[2024-07-26 09:07] VITALS: BP 150/90; PULSE 61; RESP 18; O2SAT 98
[2024-07-26 09:08] VITALS: BP 145/67; PULSE 79; RESP 18; O2SAT 98
[2024-07-26 09:09] VITALS: BP 147/81; PULSE 83; RESP 18; O2SAT 98
[2024-07-26 09:10] VITALS: BP 138/79; PULSE 76; RESP 18; O2SAT 98
[2024-07-26 09:11] VITALS: BP_SYST 121; BP_SYST 124; BP_DIAS 70; PULSE 72; PULSE 79; RESP 18; O2SAT 98
== END 2024-07-26 23:59 | disposition home or self-care (01) ==
LOC: RAD 07:50
PROVIDERS: ATTEND Internal Medicine Interventional Cardiology
DX: R07.9 Chest pain, unspecified (principal)
CPT/HCPCS: 78452; 93017; A9500; J2785; J0280

== ENCOUNTER 2025-01-26 09:24 | Outpatient (CLI) | payer MEDICARE, MEDICAID ==
--- NOTE | 2025-01-26 15:29 | RADIOLOGY REPORT ---
PROCEDURE: MR MRI HEAD INDICATION: SENSORINEURAL HEARING LOSS, BILATERAL EXAM DATE: 01/26/2025 09:43 AM COMPARISON: CT CT HEAD on DOS: 08/16/23, CT HEAD on DOS: 08/18/20 TECHNIQUE: MRI of the brain without intravenous contrast. High-resolution images through the interna l auditory canals were also obtained. FINDINGS: Diffusion weighted images of the brain demonstrate no evidence of acute infarction. There is no evidence of acute intracranial hemorrhage, extra-axial collection, mass effect, midline s hift, herniation or hydrocephalus. The ventricles, sulci and cisterns appear age appropriate. The signal intensities of the brain parenchyma are within normal limits. Bilateral choroid plexus cys ts noted. Possible mass in the right internal auditory canal measuring up to 5 mm. There are no signal abnormalities on the susceptibility weighted sequences. The major vascular flow voids are present. The visualized paranasal sinuses and mastoid air cells are clear. The surrounding soft tissues and o sseous structures are unremarkable. IMPRESSION: 1. No evidence of acute infarction, intracranial hemorrhage, mass effect or hydrocephalus. 2. Possible mass in the right internal auditory canal measuring up to 5 mm, possibly an acoustic neur halima. Recommend further evaluation with intravenous contrast. 3. Bilateral choroid plexus cysts noted. HS:Y
== END 2025-01-26 23:59 | disposition home or self-care (01) ==
LOC: MRI02 09:24
PROVIDERS: ATTEND Family Medicine
DX: G93.0 Cerebral cysts (principal); H90.3 Sensorineural hearing loss, bilateral
CPT/HCPCS: 70551